=== PATIENT | male | born 1990 | race Caucasian/White ===

== ENCOUNTER 2019-11-22 09:57 | Emergency (ER) | payer MEDICAID ==
[~2019-11-22] VITALS: Ht 185.4 cm; Wt 93.2 kg
[2019-11-22 10:09] VITALS: BP 135/86
== END 2019-11-22 11:45 | disposition home or self-care (01) ==
LOC: ER 09:58
DX: M25.461 Effusion, right knee (principal); W19.XXXA Unspecified fall, initial encounter; Y93.89 Activity, other specified; Y92.89 Other specified places as the place of occurrence of the external cause; Y99.8 Other external cause status
CPT/HCPCS: 29505; 73564; 99283